=== PATIENT | female | born 1940 | race Caucasian/White ===

== ENCOUNTER 2016-08-17 10:31 | Outpatient (CLI) | payer OTHER, MEDICARE | END 2016-08-17 23:00 | LOC: LAB SRH 10:31 | DX: D64.9 Anemia, unspecified (principal) | CPT/HCPCS: 90074; 91282; 91504; 91505; 92715; 95070 ==

== ENCOUNTER 2016-11-10 14:41 | Outpatient (CLI) | payer OTHER, MEDICARE | END 2016-11-10 23:00 | LOC: LAB SRH 14:41 | DX: N18.4 Chronic kidney disease, stage 4 (severe) (principal); D64.9 Anemia, unspecified | CPT/HCPCS: 90074; 90100; 91171; 91282; 91504; 91505; 92057; 92668; 92670; 95070; 99789 ==

== ENCOUNTER 2016-11-20 14:51 | Outpatient (CLI) | payer OTHER, MEDICARE | END 2016-11-20 23:00 | LOC: LAB SRH 14:51 | DX: N18.4 Chronic kidney disease, stage 4 (severe) (principal); D64.9 Anemia, unspecified | CPT/HCPCS: 90074; 91171 ==

== ENCOUNTER → 2017-01-17 | Outpatient (CLI) | payer OTHER, MEDICARE ==
--- NOTE | 2017-01-17 10:52 | DIAGNOSTIC IMAGING REPORT ---
PROCEDURE: MG BILATERAL SCREENING W/CAD INDICATION: SCREENING TECHNIQUE: CC and MLO digital views. COMPARISON: None available. FINDINGS: Computer-aided detection applied. Mildly dense with a few dystrophic calcifications. No change. IMPRESSION: 1. Negative mammogram. RESULT CODE: 1- Negative. A. A negative report should not delay biopsy if a dominant or clinically suspicious mass is present. 10-15% of cancers are not identified by x-ray. B. A negative report may reinforce clinical impression. C. Adenosis and dense breasts may obscure an underlying neoplasm. D. False positive reports average 6-10%. E.. A yearly screening mammogram is recommended. A reminder letter will be scheduled.
== END ==
LOC: MAM SRH 01-16 11:30
DX: Z12.31 Encounter for screening mammogram for malignant neoplasm of breast (principal)